=== PATIENT | male | born 1960 | race Caucasian/White ===

== ENCOUNTER 2018-05-12 17:40 | Inpatient (IN) | payer OTHER ==
[2018-05-12] MEDS ORDERED: IOPAMIDOL (ISOVUE 370) 100 ML BTL IV ONE (17:47)
--- NOTE | 2018-05-12 17:55 | EDPHY ---
H & P Time Seen by Provider: 05/12/18 17:45 HPI/ROS: CHIEF COMPLAINT: Right-sided weakness HISTORY OF PRESENT ILLNESS: 57-year-old male with diabetes and hypertension presents with right-sided weakness. Sudden onset of right-sided weakness at 1400 today while at work. Weakness mainly involves the right hand. He first noticed a problem because he dropped pencils repeatedly. His leg was also weak and he had a limping gait. Coworkers noticed that the right side of his face was weak as well. Currently feeling somewhat better, but continues to have right-sided weakness and numbness. No headache, chest pain, SOB. No prior similar symptoms. REVIEW OF SYSTEMS: complete 10 point ROS reviewed and is negative except for the noted elements in the HPI Source: Patient - Medical/Surgical History PMH: Hypertension Hx Diabetes: Yes - Social History Smoking Status: Current every day smoker Alcohol Use: None Drug Use: None - Physical Exam Exam: General Appearance: Alert, pleasant, normal speech Eyes: Pupils equal and round, no conjunctival pallor or injection ENT, Mouth: Mucous membranes moist Neck: Normal inspection Respiratory: Lungs are clear to auscultation Cardiovascular: Regular rate and rhythm Gastrointestinal: Abdomen is soft and nontender Neurological: A&O, cranial nerves 2-12 intact, motor 5/5, decreased sensation to light touch right face/arm/leg Skin: Warm and dry Extremities: Nontender, no pedal edema Psychiatric: Mood and affect normal Constitutional: Initial Vital Signs Temperature (C) 37 C 05/12/18 18:13 Heart Rate 80 05/12/18 18:13 Respiratory Rate 16 05/12/18 18:13 Blood Pressure 196/107 H 05/12/18 18:13 O2 Sat (%) 96 05/12/18 18:13 O2 Delivery Mode Room Air Allergies/Adverse Reactions: No Known Allergies Allergy (Unverified 05/12/18 19:25) Home Medications: Medication Instructions Recorded Lisinopril [Zestril 20 mg (*)] 20 mg PO DAILY 05/12/18 metFORMIN HCL [Glucophage 1000 mg] 1,000 mg PO BIDMEAL 05/12/18 sitaGLIPtin PHOSPHATE [Januvia 100 100 mg PO DAILY 05/12/18 MG (*)] Aspirin [Aspirin 81mg (*)] 81 mg PO DAILY #30 tab.chew 05/13/18 Atorvastatin Calcium [Lipitor 40 40 mg PO DAILY #30 tab 05/13/18 mg (*)] Medical Decision Making - Diagnostics EKG Interpretation: EKG interpreted by me reveals normal sinus rhythm, rate 76, no ST or T segment changes. Interpretation: Normal EKG Imaging Results: Head CT 05/12/18 17:45 Impression: 1. Indeterminant focus of increased attenuation in the brainstem at the pontomedullary junction, hemorrhagic focus cannot be excluded, and follow-up study would be helpful. 2. Old lacunar-type infarct left centrum semiovale. 3. See above report for additional findings. Results called and discussed with Ashlee Cruz M.D., on May 12, 2018 at 1800. Imaging: Discussed imaging studies w/ production assistant Radiologist, I viewed and interpreted images myself ED Course/Re-evaluation: This patient presents as a stroke alert. I met him in the hallway. Initial neurologic exam reveals no facial weakness, open winder strength is equal and able to hold right lower extremity up against gravity for 5 sec, similar to the left side. Patient still feels weak. Sent directly to CT scan. Neurologic exam performed after CT scan: Cranial nerves 2-12 intact, motor 5/5 throughout, decreased sensation to light touch the right side, including the face. NIH stroke score 1. Stat EKG reveals no evidence of ischemia or dysrhythmia. Telemedicine consulted. CT scan read by Dr. Armond Rodriguez reveals a focal density in the brain stem of unclear etiology, old infarct adjacent to the left lateral ventricle. Discussed with telemedicine, unclear if this is hemorrhage. Patient is not a tPA candidate. Will hold aspirin until the etiology of this density is determined. Labetolol 10mg IV x 2 given for BP control with good control of BP. Goal is for SBP less than 180. CTA brain/neck read by Dr. Rodriguez : unremarkable MRI brain reveals acute lacunar infarct left thalamus. Results d/w pt. Neuro exam unchanged. ASA given. The hospitalist service was consulted for admission. This pt utilized 35 minutes of critical care time by me exclusive of unbundled procedures. Time spent in assessments/reassessments, ordering/reviewing labs and radiologic studies, time with consultants and conversations with patient. Organ at risk: brain Differential Diagnosis: Altered mental status including but not limited to hypoglycemia, infectious process, electrolyte abnormality, head injury, CVA, and intoxicants. - Data Points Laboratory Results: Laboratory Results 05/12/18 17:46 05/12/18 17:46 Medications Given: Discontinued Medications Aspirin (Aspirin) 325 mg PO EDNOW ONE Stop: 05/12/18 19:04 Last Admin: 05/12/18 19:15 Dose: 325 mg Aspirin (Aspirin) 81 mg PO DAILY [facility] Stop: 11/09/18 08:59 Last Admin: 05/13/18 09:10 Dose: 81 mg Atorvastatin Calcium (Lipitor) 40 mg PO DAILY [facility] Stop: 11/08/18 19:59 Last Admin: 05/13/18 09:10 Dose: 40 mg Enoxaparin Sodium (Lovenox) 40 mg SC DAILY [facility] Stop: 11/09/18 08:59 Last Admin: 05/13/18 09:10 Dose: 40 mg Insulin Human Lispro (Humalog Lispro) 0 unit SC TIDMEAL [facility] PRN Reason: Protocol Stop: 11/09/18 07:59 Last Admin: 05/13/18 12:32 Dose: 4 units Labetalol HCl (Trandate Injection) 10 mg IVP EDNOW ONE Stop: 05/12/18 18:26 Last Admin: 05/12/18 18:30 Dose: 10 mg Labetalol HCl (Trandate Injection) 10 mg IVP ONCE ONE Stop: 05/12/18 19:17 Last Admin: 05/12/18 19:16 Dose: 10 mg Sitagliptin Phosphate (Januvia) 100 mg PO DAILY [facility] Stop: 11/09/18 08:59 Last Admin: 05/13/18 09:10 Dose: 100 mg Point of Care Test Results: Chemistry 05/12/18 05/12/18 17:45 17:45 POC Sodium 145 mEq/L mEq/L (135-145) POC Potassium 3.9 mEq/L mEq/L (3.3-5.0) POC Chloride 108 mEq/L mEq/L (97-110) POC BUN 15 mg/dL mg/dL (7-23) POC Creatinine 1.0 mg/dL mg/dL (0.7-1.3) POC Glucose 155 mg/dL H mg/dL (70-100) POC Troponin I 0.00 ng/mL ng/mL (0.00-0.08) ISTAT H&H 05/12/18 17:45 POC Hgb 15.0 gm/dL gm/dL (13.7-17.5) POC Hct 44 % % (40-51) Departure - Departure Disposition: [facility] Inpatient Acute Clinical Impression: Acute ischemic stroke Condition: Fair
[2018-05-12 18:08] LABS: PLATELET COUNT 237 10^3/uL (150-400)
[2018-05-12] MEDS ORDERED: LABETALOL HCL 5 MG/ML 20 ML MDV IVP ONE ×2 (18:25→19:16)
[2018-05-12 18:41] LABS: INR 0.97 (0.83-1.16); PROTIME(PATIENT) 13.1 SEC (12.0-15.0)
[2018-05-12] MEDS ORDERED: ASPIRIN 325 MG TAB PO ONE (19:03)
[2018-05-12] MEDS ORDERED: LABETALOL HCL 5 MG/ML 20 ML MDV ONE (19:14)
--- NOTE | 2018-05-12 19:36 | CPEKG ---
Test Reason : OPEN Blood Pressure : / mmHG Vent. Rate : 076 BPM Atrial Rate : 076 BPM P-R Int : 160 ms QRS Dur : 086 ms QT Int : 379 ms P-R-T Axes : 030 -29 059 degrees QTc Int : 427 ms Sinus rhythm Borderline left axis deviation Confirmed by Ashlee Cruz ([id number]) on 05/12/2018 7:36:08 PM Referred By: Confirmed By:Ashlee Cruz
[2018-05-12] MEDS ORDERED: LABETALOL HCL 5 MG/ML 20 ML MDV IVP PRN (19:56)
[2018-05-12] MEDS ORDERED: ACETAMINOPHEN 325 MG TAB PO PRN (20:00)
[2018-05-12] MEDS ORDERED: ONDANSETRON 4 MG/2 ML VIAL IVP PRN (20:00)
--- NOTE | 2018-05-12 20:43 | GHP ---
DATE OF ADMISSION: 05/12/2018 CHIEF COMPLAINT: Right-sided numbness. HPI: This is a 57-year-old male with history of hypertension, diabetes and tobacco use who presented to the emergency department as a stroke alert after he developed right-sided numbness that began at 2 p.m. today. The patient states that he initially had some numbness in his fingers that quickly spr ead to his arms, legs and face. He continues to have some numbness but it is improving. This never happened before. He denies any family history of blood clots. PAST MEDICAL HISTORY: 1. Hypertension. 2. Diabetes. PAST SURGICAL HISTORY: Left fibula surgery. MEDICATIONS: Januvia, metformin, lisinopril. ALLERGIES: No known drug allergies. SOCIAL HISTORY: The patient has a 30+ pack-year smoking history. He denies any alcohol use. He den ies any illicit drug use. FAMILY HISTORY: Reviewed and noncontributory. REVIEW OF SYSTEMS: Comprehensive 10-point review of systems was done and was negative except for as mentioned in HPI. PHYSICAL EXAMINATION: VITAL SIGNS: Blood pressure 168/98, pulse of 75m, respiratory rate 16, O2 sat uration 98% on room air. Temperature afebrile. GENERAL: No acute distress. HEAD: Normocephalic, atraumatic. EYES: PERRLA. Sclerae anicteric. MOUTH: Moist mucous membranes. NECK: Supple. No lymphadenopathy. CARDIOVASCULAR: S1 and S2. No JVD. No lower extremity edema. No carotid bruit. PULMONARY: Lungs are clear. No wheezes, rales, or rhonchi. ABDOMEN: Soft, nontender, nondistende d. No guarding or rebound tenderness. Normoactive bowel sounds. EXTREMITIES: No clubbing or cyano sis. NEURO: Cranial nerves 2-12 grossly intact. Face is symmetric. Muscle strength 4+/5 right upp er extremity flexion and winchman/crane operator otherwise 5/5 and symmetric in lower extremity flexion and extension. DTRs are 2+ and symmetric at the patella. Babinski is downgoing. SKIN: Clear. No rashes. DIAGNOSTICS: WBC is 9.54, hemoglobin 15.5, hematocrit 44.6, platelets 237. PT 13.1, INR 0.97, PTT 2 8.8. Sodium 136, potassium 4.1, chloride 107, BUN 16, creatinine 1, glucose 147. Troponin was negat anna. CTA of the head and neck was reviewed and was read as normal. CT angiography of the head with attention to the great vessels of the [place] of [place]: There is a focal area of increased attenuati on in the brainstem at the pontomedullary junction. MRI of the brain shows acute lacunar infarct lef t thalamus with old lacunar infarcts bilateral thalami and left basal ganglia. EKG, which I visualiz ed and personally interpreted shows sinus rhythm, rate 76 beats per minute, no acute ischemic changes . ASSESSMENT AND PLAN: This is a 57-year-old male presenting with right-sided numbness and weakness an d found to have: 1. Acute lacunar infarct at the left thalamus. 2. Diabetes. 3. Hypertension. 4. History of tobacco use. PLAN: 1. The patient will be admitted to the neuro unit. 2. Will allow for permissive hypertension. 3. Start statin. 4. Recommend tobacco cessation and nicotine replacement as needed. 5. Start aspirin daily. 6. Check lipid panel and check A1c. 7. Manage blood sugar. 8. Neurology will be consulted in the morning. /[id number]/MODL
[2018-05-12] MEDS ORDERED: D50W 25 GM/50 ML SYR IVP PRN (21:20)
[2018-05-12] MEDS: ATORVASTATIN CALCIUM 40 MG TAB PO SCH (21:32)
[2018-05-13] MEDS: INSULIN LISPRO 100 UNIT/ML SC SCH ×2 (08:18→12:32)
--- NOTE | 2018-05-13 08:39 | PDMN ---
Medical Necessity Medical necessity: Pt meets inpt criteria per MD order and [facility] M-83, Stroke: Ischemic. 57 y/o admitted w/acute lacunar infarct (confirmed on MRI),presenting w/R side numbness and weakness. Comorbidities include diabetes, HTN, tobacco use. Anticipate>2MN for eval/management of acute CVA.
[2018-05-13] MEDS ORDERED: ENOXAPARIN 40 MG/0.4 ML SYR SC SCH (09:00)
[2018-05-13] MEDS ORDERED: ASPIRIN 81 MG CHEWABLE TAB PO SCH (09:00)
[2018-05-13] MEDS: ATORVASTATIN CALCIUM 40 MG TAB PO SCH (09:10)
--- NOTE | 2018-05-13 10:20 | GCON ---
NEUROLOGY CONSULT REFERRING PHYSICIAN: Mustapha Perez DO CHIEF COMPLAINT: Stroke. HISTORY OF PRESENT ILLNESS: The patient is a very pleasant 57-year-old gentleman who has a longstanding history of hypertension and diabetes. He thinks he may have had some intermittent right hand numbness over the last few months. However, yesterday he began having right hand numbness in an acute fashion, which spread up his arm, trunk, perhaps face, and then into his leg followed by a sensation of weakness. He came to the ED and had a tele neurology stroke alert consult. Based on the entire imaging data and clinical history, he was not a tPA candidate as there was a question of hemorrhage. He did have a followup MRI which showed that he actually had some brainstem calcification but also revealed a small lacunar type infarct in the left thalamus. There were some old infarcts as well in his thalami and basal ganglia. No acute hemorrhage was noted. He had a CTA of the head and neck as noted above. CT angio of the neck was negative. CTA of the head showed normal vessels. There was an area of focal increase in attenuation in the brainstem, which was clarified as calcification on MRI. He did well overnight and had no further symptoms. Laboratory values did show elevated lipids. REVIEW OF SYSTEMS: Ten-point review of system was done, only pertinent to the HPI. For past medical history, social history, family history, home medications, allergies, see Dr. Perez's H and P. PHYSICAL EXAM: VITAL SIGNS: Currently, blood pressure remains 160s systolic over 70s to 80s. He is 98% on room air. Heart rate 70s. GENERAL: The patient is very pleasant in no acute distress. NEUROLOGIC: Cranial nerve exam reveals normal facial strength and extraocular movements. Motor: Revealed mild right-sided weakness. IMPRESSION: 1. Acute lacunar left thalamic stroke. 2. Hypertension. 3. Diabetes. 4. Dyslipidemia. PLAN: Overall, the patient's clinical history is consistent with an acute lacunar infarct in the thalamus related to his underlying vascular comorbidities. He was counseled at length. The patient was not on any type of antithrombotic when this event occurred. Angiography of the head and neck showed no significant intravascular abnormalities. Going forward, he will need to be discharged on aspirin and statin medication daily. He will need Physical Therapy to give him recommendations for outpatient or inpatient treatment per their judgment. Echocardiogram is pending. Please do not hesitate to call if there are any questions on test results. He will need an outpatient cardiology consult with 30-day event monitor to exclude paroxysmal atrial fibrillation. I will see the patient back in 4-6 weeks to review all of the above and make further recommendations accordingly. The plan was discussed with the primary hospitalist. No further recommendations now. We will continue to follow the patient as needed while in the hospital. Please do not hesitate to call if there are any questions or changes in neurologic status with the patient. TIME SPENT: Forty-five total minutes floor time reviewing MRI, CTA, clinical note, direct counseling, and coordination of care. Addendum: Echocardiogram is complete, no intracardiac thrombus noted, no left- right shunting in the atria, left atrium normal size. /[id number]/MODL MTDD
--- NOTE | 2018-05-13 11:11 | ECHO ---
[email or web address] [address] [address] Main: [phone] Fax: Transthoracic Echocardiogram Name: VINAYAK FRIAS MR#: [id number] Study Date: 05/13/2018 Study Time: 08:07 AM Date of : 1960 Age: 57 year(s) Height: 185.4 cm (73 in.) Weight: 99.79 kg (220 lb.) BSA: 2.24 m2 Gender: Male Examination: Echo Indication: Ischemic stroke, hx HTN Image Quality: Adequate Contrast: Requested by: Mustapha Perez BP: 161 mmHg/77 mmHg Heart Rate: Rhythm: Indication: Ischemic stroke, hx HTN Procedure Staff Electrician Underground: Ruthann Ac RDCS Reading Physician: Kings Kelly MD Requesting Provider: Conclusions: Normal size left ventricle. No LV hypertrophy. The ejection fraction is estimated to be 60-65 %. There is paradoxic septal motion suggestive of bundle branch block, paced cardiac rhythm, or prior cardiac surgery. Grade 1 diastolic dysfunction (abnormal relaxation). Normal RV function. The left atrium is normal in size. An agitated saline study was performed and was negative for intracardiac shunting. The right atrium is normal in size. No pericardial effusion. There is pericardial fat. Measurements: Chambers Valvular Assessment AV/MV Valvular Assessment TV/PV Normal Normal Normal Name Value Range Name Value Range Name Value Range IVSd (2D): 0.9 cm (0.6 cm-1.1 AV Vmax: 1.35 m/s (1 m/s-1.7 cm) m/s) LVDd (2D): 5.7 cm (4.2 cm-5.9 AV meanP mmHg ( - ) cm) MV E Vmax: 0.64 m/s ( - ) LVDs (2D): 3.8 cm (2.1 cm-4 MV A Vmax: 0.93 m/s ( - ) cm) MV E/A: 0.69 ( - ) LVPWd (2D): 0.7 cm (0.6 cm-1 cm) LVEF (MOD4): 64 % (>=55 %) EF Range: 60-65 % Continued Measurements: Chambers Valvular Assessment AV/MV Patient: VINAYAK FRIAS Study Date: 05/13/2018 Page 1 of 2 08:07 AM Name Value Name Value LADs: 5.0 cm MV E' Septal: 0.03 m/s LADs Lon.6 cm MV E/E' Septal: 18.80 LA Area: 16.9 cm2 MV E/E' Lateral: 18.80 LA Volume: 46 ml LA Volume Index: 20.5 ml/m2 Additional Vessels Name Value Ao Ascendin.4 cm Findings: Left Ventricle: Normal size left ventricle. No LV hypertrophy. Normal global systolic LV function. The ejection fraction is estimated to be 60-65 %. There is paradoxic septal motion suggestive of bundle branch block, paced cardiac rhythm, or prior cardiac surgery. Grade 1 diastolic dysfunction (abnormal relaxation). . Right Ventricle: Normal size right ventricle. Normal RV function. Left Atrium: The left atrium is normal in size. An agitated saline study was performed and was negative for intracardiac shunting. Right Atrium: The right atrium is normal in size. Mitral Valve: The mitral valve is normal in appearance and function. Trivial mitral valve regurgitation. Aortic Valve: The aortic valve is tri-leaflet. Aortic sclerosis is present. There is no aortic valve regurgitation. No aortic valve stenosis is present. Tricuspid Valve: The tricuspid valve is normal in appearance and function. Trivial to mild tricuspid valve regurgitation. Pulmonic Valve: The pulmonic valve is normal in appearance and function. Aorta: The aorta is normal. Pericardium: No pericardial effusion. There is pericardial fat. (No Signature Object) Patient: VINAYAK FRIAS Study Date: 05/13/2018 Page 2 of 2 08:07 AM [id number]
--- NOTE | 2018-05-13 11:40 | ASMTCASEMG ---
Living Arrangements What is your living Answers: With One Parent arrangement? Who do you live with? Type Of Residence What kind of residence do Answers: House you live in? Discharge Plan Comments Coordination Status Comments Notes: Patient is a 57yo single male with a hx of diabetes, hypertension, and tobacco use who presented to the [facility] ER as a stroke alert after he developed right-sided numbness on 05/12/18. Patient was admitted for acute CVA. OT/PT/PRIMER BOXER/Inpatient rehab evals have been ordered for the patient. Patient's sister is at his bedside. He works in [employer]. The physical therapist feels because of poor motor control and poor coordination, inpatient rehab is probably most appropriate for the patient. Will await inpatient rehab eval to make final discharge plan for the patient. CM will follow.l Date Signed: 05/13/2018 11:39 AM Electronically Signed By:Emili Carlos LCSW
[2018-05-13 11:46] VITALS: BP 175/90
--- NOTE | 2018-05-13 14:46 | PDDCSUM ---
Discharge Summary Discharge Summary: Date of Admission: 05/12/2018 Date of Discharge: 05/13/2018 Consults: Neurology, PT/OT, Speech Followup: Home PT/OT/Speech, PCP, Neurology Hospital Course Problem List: Acute Lacunar Infarct L Thalamus - Presented to R-sided numbness and weakness found to have acute lacunar infarct in L thalamus - Neurology consulted who recommended ASA 81 mg, Atorvastatin 40 mg qd, TTE, 30 day monitor - Lipid panel, A1c ordered - Started on ASA, Atorvastatin - TTE shows normal EF, grade 1 diastolic dysfunction - Discussed with cardiology, 30 day surg nurse ordered, will be sent to patient's house within next week - Patient will followup with Neurology - Allowing for permissive HTN - PT/OT/Speech consulted who recommend IP rehab, however patient refusing, CM set up Home Health Care with PT and Speech T2DM - Continue home Metformin, Januvia HTN - Continue home Lisinopril Time spent on discharge >35 minutes with >50% of time spent on patient education and counseling
--- NOTE | 2018-05-13 15:00 | PDIAF ---
- Diagnosis Diagnosis: CVA Code Status: Full Code - Medication Management Discharge Medications: electronically signed and located in the Home Medication List. - Orders Services needed: Home Care, Physical Therapy, Occupational Therapy, Speech Language Pathologist Home Care Face to Face: I certify that this patient was under my care and that I had the required [id number] encounter meeting the encounter requirements on the discharge day. My findings support the fact that the patient is homebound as defined in Home Care Face to Face Continued: CMS Chapter 7 Medicare Benefits Manual 30.1.1 , The condition of the patient is such that there exists a normal inability to leave home and consequently, leaving home would require a considerable and taxing effort. Diet Texture: Regular Texture Diet, Thin Liquids - Follow Up Care Current Providers and Referrals: Patient,NotPresent [Unknown] - As per Instructions Jovanni Cano MD [Medical Doctor] - (Follow-up with Tian Duarte NP on June 22 at 10:00 a.m. To go over the results of your 30 day monitor.)
--- NOTE | 2018-05-13 16:05 | ASMTCMCOM ---
CM Note CM Note Notes: PT has recommended SNF rehab, however, patient does not want to participate. Patient is amenable to home health care for [employer] and PT. Spoke with [facility] and they can accept him as a patient. A referral was sent [employer]. Assisted with getting patient's prescriptions. Patient understands he is homebound while getting his therapies. Patient states he is not driving. He requested the Dr. give him some idea of when he will be ready to return to work. Dr. Rucker will address. Patient to discharge home today. Date Signed: 05/13/2018 04:04 PM Electronically Signed By:Emili Carlos LCSW
--- NOTE | 2018-05-13 16:09 | GCON ---
CRITICAL CARE CONSULT DATE OF CONSULTATION: 05/13/2018 HISTORY OF PRESENT ILLNESS: This patient is a 57-year-old male with a history of diabetes, smoking, and hypertension who developed right-sided numbness yesterday. He did not seek attention for several hours. It is not exactly clear when he arrived in the emergency department, but the numbness was ov er his entire right side of his body, including his face. He arrived in the emergency department and a CT scan, MRI was performed that did show lacunar infarct in the left thalamus, as well as evidence of previous infarct. He was outside the time window, so did not get tPA, and was [facility] with [facility] and statin. Overnight, his symptoms were really quite the same. He was able to wal k, although somewhat abnormally and able to use his arms well without difficulty, but still had signi ficant numbness on the right side of his body. REVIEW OF SYSTEMS: Otherwise negative. PAST MEDICAL HISTORY: Includes hypertension, diabetes. PAST SURGICAL HISTORY: Includes remote left fibula fracture repair. MEDICATIONS: At home, include Januvia, metformin, lisinopril. His current medications, include Tylenol, aspirin, Lipitor, subcutaneous Lovenox, labetalol p.r.n., Z ofran, Januvia, and insulin. SOCIAL HISTORY: He has a 30+ pack-year smoking history and continues to do so now. No significant a lcohol. FAMILY HISTORY: Noncontributory. PHYSICAL EXAMINATION: VITAL SIGNS: He is afebrile. Blood pressure 164/84, heart rate 82, normal si nus rhythm, respirations 12 oxygen saturation 98% on room air. GENERAL: He was awake, alert and dax ented x3, able to speak in full sentences without using accessory muscles for breathing. HEENT: Pup ils equally round and reactive to light. Nonicteric and noninjected. Mucous membranes are moist wit hout erythema or exudate. NECK: Supple without adenopathy or jugular vein distention. LUNGS: Annamarie th sounds were clear to auscultation bilaterally without wheezes, rubs, or rales. HEART: Regular ra te and rhythm without murmur, rub, or gallop as well. ABDOMEN: Soft, nontender, nondistended withou t hepatosplenomegaly, with normoactive bowel tones. EXTREMITIES: No clubbing, cyanosis, or edema. NEUROLOGIC: He did have numbness as reported above, but his sensation was intact. His strength was 5/5 bilaterally and equal. I did not see him ambulate. SKIN: Warm and dry without evidence of rash . OBJECTIVE DATA: White count of 9.5, hematocrit 44, platelets of 237. Coags are normal. Basic metab olic panel was also normal. Troponin was negative. LDL was 129, HDL was only 32. A head CT and MRI as described. ASSESSMENT/PLAN: Acute stroke that unfortunately missed the window for tissue plasminogen activator. He seems to be doing quite well. He has passed a swallow evaluation and is anxious to go home. I think it is likely that he will be able to tolerate being home, although his social situation is some what difficult because he lives with his parents and takes care of his mother. His sister lives a fe w doors away and also helps out, thinks that she will be able to help. Physical Therapy has seen him and suggested that he stay for inpatient rehab, but he is quite adamant about going home. I think ana godwin is going to be relatively safe in that environment. He has been seen by Neurology and will certain ly need Neurology followup. They did not feel that additional anti-platelet agents, such as Plavix w ere necessary at this time. /[id number]/MODL
--- NOTE | 2018-05-13 16:16 | ASMTLACE ---
LACE Length of stay for Answers: 1 day current admission Acuity / Level of Answers: Yes Care: Did the patient have an inpatient admission? Comorbidities - select Answers: Diabetes (uncontrolled or all that apply controlled) Other Notes: HTN # of Emergency department Answers: 1-2 visits in the last 6 months Score: 7 Date Signed: 05/13/2018 04:15 PM Electronically Signed By:Emili Carlos LCSW
--- NOTE | 2018-05-13 16:19 | ASMTDCNOTE ---
Case Management Discharge Discharge Order Complete? Answers: Yes Patient to Obtain Answers: Independently Medications Transportation Arranged Answers: Taxi - Self Pay Faxed Final Orders Answers: Yes Notes: [facility] Agency/Facility Transfer Answers: Yes Notes: [facility] Report Printed & Faxed to Receiving Agency Discharge Comments Notes: Patient discharged to home today with [facility] home health care ([employer] and PT). Assisted patient with prescriptions. Discharge summaries sent to [facility] via [employer].No further d/c needs. Date Signed: 05/13/2018 04:18 PM Electronically Signed By:Emili Carlos LCSW
--- NOTE | 2018-05-13 16:19 | ASDISCHSUM ---
Discharge Information Plan Status:Home with Home Health Medically Cleared to Leave:05/12/2018 Discharge Date:05/13/2018 04:00 PM D/C Disposition:Home Health Service [facility]C Disposition:Home, Routine, Self-Care Projected Discharge Date:05/13/2018 11:00 AM Transportation at D/C:[employer] Discharge Delay Reason: Follow-Up Date:05/13/2018 11:00 AM Discharge Slot:2 - 12:01 pm - 18:00 pm Final Diagnosis:Acute Ischemic Stroke Placement Information Referral Type:*Home Health Care Services Referral ID:[id number] Provider Name:[facility] Care Address 1:[address] Address 2: City:[place] Selection Factors: State:[place] Patient Contact Information Contact Name:SARAN Relationship:Mother Address:[address] City:[place] Alternate Phone: State/Zip Code:[place] [address] Email: Financial Information Financial Class:Dwellable Primary Plan Desc:[employer] [facility] Primary Plan Number:[id number] Secondary Plan Desc: Secondary Plan Number: Assessment Information LACE LACE Length of stay for Answers: 1 day current admission Acuity / Level of Answers: Yes Care: Did the patient have an inpatient admission? Comorbidities - select Answers: Diabetes (uncontrolled or all that apply controlled) Other Notes: HTN # of Emergency department Answers: 1-2 visits in the last 6 months Score: 7 Date Signed: 05/13/2018 04:15 PM Electronically Signed By:Emili Carlos LCSW [facility] Initial CM Assessment Living Arrangements What is your living Answers: With One Parent arrangement? Who do you live with? Type Of Residence What kind of residence do Answers: House you live in? Discharge Plan Comments Coordination Status Comments Notes: Patient is a 57yo single male with a hx of diabetes, hypertension, and tobacco use who presented to the [facility] ER as a stroke alert after he developed right-sided numbness on 05/12/18. Patient was admitted for acute CVA. OT/PT/[facility]ER/Inpatient rehab evals have been ordered for the patient. Patient's sister is at his bedside. He works in [employer]. The physical therapist feels because of poor motor control and poor coordination, inpatient rehab is probably most appropriate for the patient. Will await inpatient rehab eval to make final discharge plan for the patient. CM will follow.l Date Signed: 05/13/2018 11:39 AM Electronically Signed By:Emili Carlos LCSW [facility] CM Progress Note CM Note CM Note Notes: PT has recommended SNF rehab, however, patient does not want to participate. Patient is amenable to home health care for HOME [facility]KER and PT. Spoke with [facility] and they can accept him as a patient. A referral was sent [employer]. Assisted with getting patient's prescriptions. Patient understands he is homebound while getting his therapies. Patient states he is not driving. He requested the give him some idea of when he will be ready to return to work. Dr. Rucker will address. Patient to discharge home today. Date Signed: 05/13/2018 04:04 PM Electronically Signed By:Emili Carlos LCSW Case Management Discharge Plan Note Case Management Discharge Discharge Order Complete? Answers: Yes Patient to Obtain Answers: Independently Medications Transportation Arranged Answers: Taxi - Self Pay Faxed Final Orders Answers: Yes Notes: [facility] Agency/Facility Transfer Answers: Yes Notes: [facility] Report Printed & Faxed to Receiving Agency Discharge Comments Notes: Patient discharged to home today with [facility] home health care (HOME [facility]KER and PT). Assisted patient with prescriptions. Discharge summaries sent to [facility] via [employer].No further d/c needs. Date Signed: 05/13/2018 04:18 PM Electronically Signed By:Emili Carlos LCSW Intervention Information
== END 2018-05-13 16:00 | disposition home or self-care (01) | DRG 66 ==
LOC: EDUNIT# → F2N 19:55
PROVIDERS: ADMIT Family Medicine; ATTEND Family Medicine
DX: I63.81 Other cerebral infarction due to occlusion or stenosis of small artery (principal); I10 Essential (primary) hypertension; E11.9 Type 2 diabetes mellitus without complications; F17.210 Nicotine dependence, cigarettes, uncomplicated
CPT/HCPCS: 82435-PO; 82565-PO; 82947-PO; 84132-PO; 84295-PO; 84484-PO; 84520-PO; 85014-PO; 92523-GN; 92610-GN; 97162-GP; 97166-GO; J1650; J1815; Q9967

== ENCOUNTER → 2018-08-10 | Outpatient (CLI) | payer OTHER | LOC: FIMAGING 11:52 | PROVIDERS: ATTEND Family Medicine Sports Medicine | DX: M19.011 Primary osteoarthritis, right shoulder (principal); R91.1 Solitary pulmonary nodule; I10 Essential (primary) hypertension; E11.9 Type 2 diabetes mellitus without complications ==

== ENCOUNTER 2018-09-04 07:08 | Day surgery (SDC) | payer OTHER ==
[2018-09-04] MEDS ORDERED: LIDOCAINE 1% 300 MG/30 ML SDV SC ONE (07:13)
--- NOTE | 2018-09-04 08:47 | PDCTREPORT ---
Cardiothoracic Procedure Rpt Cardiothoracic Procedure Report: Procedure: Implantation of a loop recorder Indications: Stroke After obtaining informed consent left subclavian fossa was sterilely prepped and draped. Small area in the left marisa pectoral region was anesthetized with 2 % xylocaine. A stab wound was made. A Medtronic loop recorder was inserted using the insertion tool under the skin. 2 juan carlos were used to close the incision. Conclusions successful implantation of a Medtronic loop recorder. For details of the device please see the attached computer report. Patient Problems: Problems Problem Status Onset Acute ischemic stroke Acute
--- NOTE | 2018-09-04 09:30 | PDGENHP ---
History & Physical Chief Complaint: loop placement History of Present Illness: Hx. of cryptogenic stroke for loop recorded. on 30 day monitor suggestion of arrythmia. Relevant Physical Exam: 120/70. 84. No jvp. Chest clear. cor rrr Cardiorespiratory Assessment: Loop recorder placement
== END 2018-09-04 09:11 | disposition home or self-care (01) ==
LOC: FCATH 07:08
PROVIDERS: ATTEND Internal Medicine Interventional Cardiology
PROC: 0JH602Z Insertion of Monitoring Device into Chest Subcutaneous Tissue and Fascia, Open Approach (ICD-10-PCS; principal; 2018-09-04)
DX: Z86.73 Personal history of transient ischemic attack (TIA), and cerebral infarction without residual deficits (principal); E11.9 Type 2 diabetes mellitus without complications; I10 Essential (primary) hypertension
CPT/HCPCS: C1764